=== PATIENT | female | born 1980 | race Caucasian/White ===

== ENCOUNTER 2025-01-16 16:24 | Emergency (ER) | payer MEDICAID ==
[~2025-01-16] VITALS: Ht 160 cm; Wt 74.0 kg
[2025-01-16 16:33] VITALS: TEMP 99.4
[2025-01-16 17:11] LABS: URINE HCG NEGATIVE (NEG)
--- NOTE | 2025-01-16 17:26 | Physician Documentation ---
History of Present Illness ~ Chief Complaint: Dizziness Stated Complaint: SYNCOPE Time Seen by MD: 16:59 Mode of Arrival: EMS, Stretcher HPI This is a 44-year-old female presents to the ED with a complaint of dizziness and high blood pressure. That has recently evaluated at [facility] for the same symptoms in her laboratory values and EKG and other findings came back unremarkable. Today while she was picking up a med [employer] she felt dizziness again. She is currently staying with a friend who is a regional sales associate and she is regularly checking her blood pressure. States that her blood pressure is higher at night. Also adds that she has some socioeconomic difficulties including having six children and being without residents. She reports having increased anxiety and stress Day of Onset: Jan 16, 2025 Medication Reconciliation Allergies: Coded Allergies: Penicillins (Verified Allergy, Unknown, 01/16/25) Scheduled Hydroxyzine Hcl* (Atarax*), 1 TAB PO Q12H Propranolol Hcl* (Inderal*), 1 TAB PO Q12H Past Medical History Last Menstrual Period: Dec 23, 2024 Review of Systems All Other Systems at this time: Reviewed and Negative ROS As stated above in the HPI, otherwise all systems are reviewed and negative. Physical Exam Vital Signs: Temperature: 99.4, Source: Oral, Heart Rate: 85, Respiratory Rate: 17, BP: 113/78, Pulse Oximetry: 98, Weight: 74.000 Oxygen Flow Rate: 0 Physical Exam General: Alert, no apparent distress. Respiratory: Lungs clear, no respiratory distress. Cardiovascular: Regular rate and rhythm, no murmurs. Gastrointestinal: Soft, nontender, nondistended. Bowels sounds present. Neurologic: Oriented x4. Psychiatric: Normal mood and affect. Skin: Normal color, warm and dry. No edema, no ecchymosis. Progress Results/Orders Results/Orders Orders - REUBEN GONZALEZ [employer]OTTLE [employer] QUALITY CONTROL TECHNICIAN Electrocardiogram (01/16/25 ) Chest,Single View (01/16/25 17:40) Monitor (01/16/25 17:12) Saline Lock (01/16/25 17:12) Oxygen (01/16/25 17:12) Completed Orders - REUBEN GONZALEZ [employer]OTT[employer] QUALITY CONTROL TECHNICIAN Chest,Single View (01/16/25 17:40) Cbc/Diff (01/16/25 17:12) BMP (01/16/25 17:12) PBNP (01/16/25 17:12) Hs Troponin I W Calculations (01/16/25 17:12) Vital Signs 01/16/25 01/16/25 01/16/25 01/16/25 16:33 16:44 17:09 17:52 Temp 99.4 Pulse 81 85 71 Resp 19 17 12 B/P (MAP) 129/90 113/78 (90) 113/78 (90) Pulse Ox 98 98 97 O2 Flow Rate 0 0 0 Laboratory Tests Test 01/16/25 16:40 01/16/25 16:54 White Blood Count 9.0 Red Blood Count 4.53 Hemoglobin 12.9 Hematocrit 38.6 Mean Corpuscular Volume 85.2 Mean Corpuscular Hemoglobin 28.4 Mean Corpuscular Hemoglobin Concent 33.3 Red Cell Distribution Width 14.9 H Platelet Count 289 Mean Platelet Volume 8.7 Neutrophils (%) (Auto) 71.3 Lymphocytes (%) (Auto) 20.3 L Monocytes (%) (Auto) 6.7 Eosinophils (%) (Auto) 1.1 Basophils (%) (Auto) 0.6 Neutrophils # (Auto) 6.4 Lymphocytes # (Auto) 1.8 Monocytes # (Auto) 0.6 Eosinophils # (Auto) 0.1 Basophils # (Auto) 0.0 CBC Comment Sodium Level 136 Potassium Level 3.8 Chloride Level 104 Carbon Dioxide Level 23.5 L Anion Gap 9 Blood Urea Nitrogen 11 Creatinine 0.47 Estimated GFR/1.73 m2 > 90 BUN/Creatinine Ratio 23.4 H Glucose Level 107 H Calcium Level 9.7 Troponin I High Sensitivity 5 Pro-B-Type Natriuretic Peptide 33 Albumin 3.9 Chemistry Comments Urine HCG, Qualitative Negative Medical Decision Making Findings This 44-year-old female presents with suspected stress-induced hypertension. I discussed this with the patient as she also suspect that anxiety as a contributing factor. Her socioeconomic factors are likely stress inducing. Her laboratory values were unremarkable. Aswas EKG and chest x-ray start her on a low dose of beta-ankush and hydroxyzine Differential Dx:Considerations: Include: anemia, CVA, dehydration, dysrhythmia, electrolyte imbalance, encephalopathy, Guillain-Hathorne, hypoglycemia, hypotension, hypovolemia, labyrinthitis, Meniere's disease, myasathenia gravis, myocardial infarction, pulmonary embolus, renal failure, respiratory failure, TIA, VBI, vertigo central, vertigo peripheral, vestibular neuronitis, other Departure Disposition: 04 [facility] Impression: Primary Impression: Anxiety about health Additional Impression: Benign hypertension Condition: Stable Discharge Instructions: Managing Anxiety, Adult Referrals: NO PRIMARY CARE PROVIDER (PCP) Prescriptions Propranolol Hcl* (Inderal*) 10 Mg Tablet 1 TAB PO Q12H for 30 Days, #60 TAB Prov: REUBEN GONZALEZ [employer] QUALITY CONTROL TECHNICIAN 01/16/25 Hydroxyzine Hcl* (Atarax*) 25 Mg Tablet 1 TAB PO Q12H for anxiety for 30 Days, #60 TAB Prov: REUBEN GONZALEZ [employer] QUALITY CONTROL TECHNICIAN 01/16/25 Education Educated: Patient Educated regarding: diagnosis Signature Scribe Signature: h Attestation: Scribed for Reuben Gonzalez Tap And Die Maker Technician by Reuben Davis NP . 01/16/25 17:26 REUBEN GONZALEZ NP Jan 16, 2025 17:26
[2025-01-16 17:40] LABS: MEAN PLATELET VOLUME 8.7 FL (7.4-10.4); RED CELL DISTRIBUTION WIDTH 14.9 % (11.5-14.5)
[2025-01-16 17:52] VITALS: BP 113/78; PULSE 71; RESP 12; O2SAT 97
[2025-01-16 17:58] LABS: CREATININE 0.47 MG/DL (0.40-0.90); PRO BRAIN NATRIURETIC PEPTIDE 33 PG/ML (0-125); TOTAL CARBON DIOXIDE 23.5 MMOL/L (24-32); eCRCL 128 ML/MIN; eGFR > 90 ML/MIN
[2025-01-16] MEDS ORDERED: HYDR-3686 PO (18:01)
[2025-01-16] MEDS ORDERED: PROP10TA10 PO (18:01)
--- NOTE | 2025-01-16 18:05 | RADIOLOGY REPORT ---
CHEST RADIOGRAPH Indication: CP Technique: Single frontal view of the chest was obtained Comparison: XR CHEST 1 VIEW on DOS: 12/03/24 FINDINGS: Lines and Tubes: None Lungs: No focal consolidation. Pleura: No effusion. No pneumothorax. Cardiomediastinal contours: Unremarkable Bones: No acute osseous abnormality. IMPRESSION: No acute cardiopulmonary disease.
--- NOTE | 2025-01-16 18:12 | ELECTROCARDIOGRAPH REPORT ---
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 Abhay Brink Measurements Intervals [place] Rate: 77 P: 52 HI: 130 QRS: 60 QRSD: 81 T: 42 QT: 367 QTc: 416 Interpretive Statements Sinus rhythm Electronically Signed On 01-18-2025 19:18:[address] Abhay Brink Please click the below link to view image of tracing.
== END 2025-01-16 18:26 | disposition home or self-care (01) ==
LOC: ER 16:25
DX: F41.9 Anxiety disorder, unspecified (principal); I10 Essential (primary) hypertension; Z88.0 Allergy status to penicillin; Z79.899 Other long term (current) drug therapy
CPT/HCPCS: 36415; 71045; 80048; 81025; 83880; 84484; 85025; 93005; 99285

== ENCOUNTER 2025-01-22 13:20 | Emergency (ER) | payer MEDICAID ==
[~2025-01-22] VITALS: Ht 160 cm; Wt 69.3 kg
[~2025-01-22 13:20] MED LIST: HYDR-3686 PO; PROP10TA10 PO
[2025-01-22 14:14] LABS: MEAN PLATELET VOLUME 8.4 FL (7.4-10.4); RED CELL DISTRIBUTION WIDTH 14.7 % (11.5-14.5)
[2025-01-22 14:37] LABS: CREATININE 0.49 MG/DL (0.40-0.90); PRO BRAIN NATRIURETIC PEPTIDE < 30 PG/ML (0-125); TOTAL CARBON DIOXIDE 24.7 MMOL/L (24-32); eCRCL 122 ML/MIN; eGFR > 90 ML/MIN
--- NOTE | 2025-01-22 18:01 | Physician Documentation ---
History of Present Illness ~ General Chief Complaint: Chest Pain Stated Complaint: CHEST PAIN Time Seen by MD: 17:15 History of Present Illness Initial Comments She has a 44-year-old female who presents to the emergency department with the concerns of breakthrough tachycardia and blood pressure management. Most recently he has been placed on atenolol 10 mg along with hydroxyzine for breakthrough anxiety. She is scheduled follow up with Cardiology in [place] the beginning of February. Does report a past medical history of SVT and subclinical hypothyroidism. Reports her symptoms are primarily at night. She is going to situational family crisis at this time wear her home as displaced and she has six children. Reports some side effects from the medications currently that leaves her feeling somnolent and herminio washed out. For the time she checks her blood pressure does not reports recording greater than 150 systolic yet heart rate fluctuates between 60-100. Reported skin changes, constipation or depression. Medication Reconciliation Allergies: Coded Allergies: Penicillins (Verified Allergy, Unknown, 01/22/25) Scheduled Hydroxyzine Hcl* (Atarax*), 1 TAB PO Q12H Propranolol Hcl* (Inderal*), 1 TAB PO Q12H Review of Systems All Other Systems at this time: Reviewed and Negative Cardiovascular: Reports: palpitations, irregular heart rate; Denies: chest pain, left arm pain, diaphoresis, syncope Neurological: Reports: other (Lightheaded) Physical Exam Physical Exam Vital Signs: Temperature: 99.4, Source: Oral, Heart Rate: 72, Respiratory Rate: 18, BP: 120/90, Pulse Oximetry: 98, Weight: 69.300 General Appearance: alert, WD/WN, no apparent distress Head: normal inspection Face: normal inspection Pupils/EOM/Fundus: PERRLA Neck: non-tender Respiratory: lungs clear, normal breath sounds Chest: no accessory muscle use Cardiovascular: normal peripheral pulses Back: normal inspection Extremities: normal range of motion, no edema, no calf tenderness Neurologic: oriented x4 Motor / Sensory: no motor deficit Psychiatric: normal mood/affect Skin: normal color, warm/dry Progress Results/Orders Results/Orders Vital Signs 01/22/25 01/22/25 13:38 18:15 Temp 99.4 99.4 Pulse 72 71 Resp 18 14 B/P (MAP) 120/90 117/82 Pulse Ox 98 98 Laboratory Tests Test 01/22/25 13:56 01/22/25 15:44 01/22/25 16:47 White Blood Count 11.4 H Red Blood Count 4.26 Hemoglobin 12.1 Hematocrit 36.6 Mean Corpuscular Volume 85.8 Mean Corpuscular Hemoglobin 28.3 Mean Corpuscular Hemoglobin Concent 33.0 Red Cell Distribution Width 14.7 H Platelet Count 358 Mean Platelet Volume 8.4 Neutrophils (%) (Auto) 73.9 Lymphocytes (%) (Auto) 19.1 L Monocytes (%) (Auto) 4.9 Eosinophils (%) (Auto) 1.3 Basophils (%) (Auto) 0.8 Neutrophils # (Auto) 8.4 H Lymphocytes # (Auto) 2.2 Monocytes # (Auto) 0.6 Eosinophils # (Auto) 0.1 Basophils # (Auto) 0.1 CBC Comment Sodium Level 140 Potassium Level 4.2 Chloride Level 107 Carbon Dioxide Level 24.7 Anion Gap 8 Blood Urea Nitrogen 17 Creatinine 0.49 Estimated GFR/1.73 m2 > 90 BUN/Creatinine Ratio 34.7 H Glucose Level 103 Calcium Level 9.4 Troponin I High Sensitivity < 4 L < 4 L 4 Troponin I High Sens Percent Delta Troponin I Hi Sens Absolute Change Pro-B-Type Natriuretic Peptide < 30 Albumin 3.8 Chemistry Comments Medical Decision Making Differential Diagnosis 44-year-old female who has a pending Cardiology evaluation and echocardiogram in a week to 10 days presents to the emergency department with concerns that her current medication therapy side effects may be outweigh the benefits. Shared decision-making to take the hydroxyzine twice a day at 12.5 mg doses with hopes of decreasing nighttime tachycardia associated with anxiousness. Patient was gi kang parameters to take atenolol as needed for tachycardia above 100 and to hold for a rate of less than 60. I do think your current therapy is variant to active due to the subclinical hypothyroidism, anxiousness associated with situational for the crisis and/or breakthrough tachycardia. Incidentally patient used to be on Cardizem which she has failed and currently not taking. She does have scheduled follow up. He has strict aftercare instructions provided. Clinical exam and labs today's visit all reassuring. Safely discharged in the emergency department. Departure Disposition: HOME / SELF CARE / HOMELESS Impression: Primary Impression: Anxiety about health Additional Impressions: Benign hypertension Palpitations Subclinical hypothyroidism Condition: Stable Discharge Instructions: Palpitations Additional Instructions: Your labs obtained today in the emergency department are reassuring. Your EKG also reassuring. Physical exam additionally reassuring. Please hold your atenolol if your heart rate is 60 or less and consider taking half a tablet hydroxyzine twice a day for the inches one time a day. Keep your scheduled follow up appointment with Cardiology and your echocardiogram. Return to the emergency department as needed. Thank you for visiting emergency department [facility]. Referrals: NO PRIMARY CARE PROVIDER (PCP) Education Educated: Patient Educated regarding: diagnosis Signature Scribe Signature: . Attestation: . AYESHA BOND PAC Jan 22, 2025 18:01
[2025-01-22 18:15] VITALS: BP 117/82; PULSE 71; RESP 14; TEMP 99.4; O2SAT 98
--- NOTE | 2025-01-23 06:04 | ELECTROCARDIOGRAPH REPORT ---
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
== END 2025-01-22 18:16 | disposition home or self-care (01) ==
LOC: ER 13:21
DX: I10 Essential (primary) hypertension (principal); F41.9 Anxiety disorder, unspecified; R00.2 Palpitations; E03.8 Other specified hypothyroidism; Z88.0 Allergy status to penicillin; Z86.79 Personal history of other diseases of the circulatory system; Z79.899 Other long term (current) drug therapy
CPT/HCPCS: 36415; 80048; 83880; 84484; 85025; 93005; 99284